=== PATIENT | male | born 1955 | race Caucasian/White ===

== ENCOUNTER 2018-12-11 21:58 | Emergency (ER) | payer BC ==
[~2018-12-11] VITALS: Ht 177.8 cm; Wt 79.8 kg
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
--- NOTE | 2018-12-11 22:45 | NUR ---
PT CAME BACK FROM RADIOLOGY DEPT VIA WHEELCHAIR VAM[facility]I WELL
[2018-12-11] MEDS ORDERED: LIDOCAINE HCL 2% 20 ML VIAL ONE (23:04)
--- NOTE | 2018-12-11 23:30 | NUR ---
PHYSICIAN AT BEDSIDE SUTURES RIGHT EAR PT VAMSHI PROCEDURE WELL
[2018-12-11] MEDS ORDERED: TDAP DIPH,PERTUSS,TET VAC/PF 0.5 ML DISP.SYRIN IM ONE ×2 (23:45→23:49)
[2018-12-11] MEDS ORDERED: ACETAMINOPHEN 325 MG TABLET ONE (23:57)
[2018-12-12] MEDS ORDERED: ACETAMINOPHEN 325 MG TABLET PO ONE
--- NOTE | 2018-12-12 | NUR ---
WAS MEDICATED WITH TETANUS AND TYLENOL DENIES ALLERGIES MEDS TEACHING GIVEN
--- NOTE | 2018-12-12 00:10 | NUR ---
PT WAS DISCHARGE TO HOME WITH HIS [employer]IRLFRIEND CONDITION STABLE DISCHARGE TEACHING GIVEN AND PRESCRIPTION TEACHING GIVEN ENC PT NOT TO DRIVE
[2018-12-12 00:25] VITALS: BP 133/60
== END 2018-12-12 00:10 | disposition home or self-care (01) ==
LOC: ER 22:00
DX: S01.311A Laceration without foreign body of right ear, initial encounter (principal); F10.129 Alcohol abuse with intoxication, unspecified; E78.00 Pure hypercholesterolemia, unspecified; K21.9 Gastro-esophageal reflux disease without esophagitis; E11.9 Type 2 diabetes mellitus without complications; W01.198A Fall on same level from slipping, tripping and stumbling with subsequent striking against other object, initial encounter; Y93.89 Activity, other specified; Y92.89 Other specified places as the place of occurrence of the external cause; Y99.8 Other external cause status; Y90.9 Presence of alcohol in blood, level not specified
CPT/HCPCS: 12014; 70450; 72125; 90471; 90715; 99284; J3490; A4663

== ENCOUNTER 2021-09-28 18:40 | Emergency (ER) | payer BC ==
[~2021-09-28] VITALS: Ht 177.8 cm; Wt 86.2 kg
[2021-09-28] MEDS ORDERED: HYDROCODONE/APAP 10-325 MG TABLET PO ONE (19:00)
[2021-09-28] MEDS ORDERED: NEOMY/BACITRA/POLYMYXIN B OINT UD PACKET TP ONE ×2 (19:00→19:03)
[2021-09-28] MEDS ORDERED: ONDANSETRON ODT 4 MG TAB.RAPDIS SL ONE (19:00)
[2021-09-28] MEDS ORDERED: METFORMIN (19:02)
[2021-09-28] MEDS ORDERED: [UNRECOGNIZED DRUG - OTHER] (19:02)
[2021-09-28] MEDS ORDERED: ATORVASTATIN (19:02)
[2021-09-28] MEDS ORDERED: LAMICTAL (19:02)
[2021-09-28] MEDS ORDERED: VIAGRA (19:02)
[2021-09-28] MEDS ORDERED: HYDROCODONE/APAP 10-325 MG TABLET ONE (19:03)
[2021-09-28] MEDS ORDERED: ONDANSETRON ODT 4 MG TAB.RAPDIS ONE (19:03)
--- NOTE | 2021-09-28 19:07 | NUR ---
PT IS IN ROOM #2A. DR ESCOBEDO EVALUATED THE PT.
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
[2021-09-28] MEDS ORDERED: ONDA4TAB5 PO (20:44)
[2021-09-28] MEDS ORDERED: HYDR-4209 PO (20:44)
[2021-09-29 01:32] VITALS: BP 138/76
== END 2021-09-28 23:19 | disposition home or self-care (01) ==
LOC: ER 18:40
DX: S20.211A Contusion of right front wall of thorax, initial encounter (principal); S20.311A Abrasion of right front wall of thorax, initial encounter; V49.9XXA Car occupant (driver) (passenger) injured in unspecified traffic accident, initial encounter; Y92.410 Unspecified street and highway as the place of occurrence of the external cause; J84.10 Pulmonary fibrosis, unspecified; R94.31 Abnormal electrocardiogram [ECG] [EKG]; I34.1 Nonrheumatic mitral (valve) prolapse; K21.9 Gastro-esophageal reflux disease without esophagitis; Z79.899 Other long term (current) drug therapy
CPT/HCPCS: 71045; 93005; A4663; Q0162

== ENCOUNTER 2021-10-06 15:46 | Emergency (ER) | payer BC ==
[~2021-10-06] VITALS: Ht 177.8 cm; Wt 86.2 kg
[~2021-10-06 15:46] MED LIST: ATORVASTATIN; HYDR-4209 PO; LAMICTAL; METFORMIN; ONDA4TAB5 PO; VIAGRA; [UNRECOGNIZED DRUG - OTHER]
[2021-10-06] MEDS ORDERED: IV NORMAL SALINE 250 ML BAG IV ONE (15:49)
[2021-10-06] MEDS ORDERED: LAMOTRIGINE (16:09)
--- NOTE | 2021-10-06 16:10 | NUR ---
MD@bedside, medical screening exam in progress
--- NOTE | 2021-10-06 17:24 | NUR ---
Patient is resting comfortably on gurney, NAD.
[2021-10-06] MEDS ORDERED: IV NORMAL SALINE 1000 ML BAG IV ONE (18:00)
[2021-10-06] MEDS ORDERED: IOHEXOL 350 100 ML INFUS..BTL ONE (18:08)
--- NOTE | 2021-10-06 18:14 | NUR ---
"OK to have ice chips." per Dr Proctor. Patient is waiting for his BUN/creatinine and CT scan@this time.
[2021-10-06 18:18] LABS: MEAN CORPUSCULAR HEMOGLOBIN 23.3 uug (23.8-33.4); MEAN CORPUSCULAR VOLUME 73.4 fL (73.0-96.2); PLATELET COUNT (AUTO) 356 K/uL (152-348)
[2021-10-06 18:23] LABS: CREATININE 0.8 mg/dL (0.6-1.3); POTASSIUM 4.3 mmol/L (3.5-5.1)
--- NOTE | 2021-10-06 18:54 | NUR ---
Patient is still in CT scan. Nursing SBAR given to TOMAS Hicks.
--- NOTE | 2021-10-06 19:00 | NUR ---
patient back from CT
--- NOTE | 2021-10-06 19:43 | NUR ---
patient went to restroom. able to ambulate without any assistance
--- NOTE | 2021-10-06 20:50 | NUR ---
Patient discharged to home in stable condition. Written and verbal after care instructions given. Patient verbalizes understanding of instructions. Stressed follow up or return to ER for worsening s/s. Patient is A/O x4, able to ambulate without any assistance, no CP, no SOB, no distress noted, IV discontinued, provided copies of lab and CT.
[2021-10-06 20:56] VITALS: BP 136/72
== END 2021-10-06 20:50 | disposition home or self-care (01) ==
LOC: ER 15:48
DX: S10.93XA Contusion of unspecified part of neck, initial encounter (principal); V49.60XA Unspecified car occupant injured in collision with unspecified motor vehicles in traffic accident, initial encounter; Y92.410 Unspecified street and highway as the place of occurrence of the external cause; S20.319D Abrasion of unspecified front wall of thorax, subsequent encounter; V49.60XD Unspecified car occupant injured in collision with unspecified motor vehicles in traffic accident, subsequent encounter; D64.9 Anemia, unspecified; D75.839 Thrombocytosis, unspecified; I65.21 Occlusion and stenosis of right carotid artery; K21.9 Gastro-esophageal reflux disease without esophagitis; I34.1 Nonrheumatic mitral (valve) prolapse; Z79.899 Other long term (current) drug therapy; Z86.61 Personal history of infections of the central nervous system
CPT/HCPCS: 36415; 70498; 80048; 85025; 93880; 96360; 96361; 99285; Q9967; A4663; J7030; J7050

== ENCOUNTER 2023-10-28 22:11 | Emergency (ER) | payer BC ==
[~2023-10-28] VITALS: Ht 177.8 cm; Wt 81.6 kg
[~2023-10-28 22:11] MED LIST changes: +LAMOTRIGINE
[2023-10-28] MEDS ORDERED: LAMO100T2 PO (22:55)
[2023-10-28] MEDS ORDERED: ROSU10TA29 PO (22:55)
[2023-10-28] MEDS ORDERED: DEXL60CA3 PO (22:55)
[2023-10-28] MEDS ORDERED: EMPA1TAB7 PO (22:55)
[2023-10-28] MEDS ORDERED: mounjaro PO (22:55)
[2023-10-29 00:02] LABS: *BILIRUBIN,URIN NEGATIVE (NEGATIVE); *BLOOD, URINE 1+ (NEGATIVE); *CLARITY,URINE CLEAR (CLEAR); *COLOR,URINE YELLOW (YELLOW); *KETONES,URINE NEGATIVE (NEGATIVE); *PROTEIN,URINE NEGATIVE (NEGATIVE); *UROBILINOGEN,URINE 0.2 E.U./dl (NORMAL); LEUKOCYTE ESTERASE ,URINE NEGATIVE (NEGATIVE); NITRITE, URINE NEGATIVE (NEGATIVE)
[2023-10-29 00:21] LABS: UGLUCOSE 2+ (NEGATIVE)
[2023-10-29 00:24] LABS: BASOPHILS # (AUTO) 0.2 K/UL (0.0-0.2); BASOPHILS % (AUTO) 2.6 % (0.0-2.0); DIFFERENTIAL COMMENT 0; EOSINOPHILS # (AUTO) 0.2 K/uL (0.0-0.7); EOSINOPHILS % (AUTO) 2.6 % (0.0-7.0); HEMATOCRIT 41.2 % (36.7-47.1); HEMOGLOBIN 13.9 g/dL (12.5-16.3); LYMPHOCYTES # (AUTO) 0.9 K/uL (0.8-4.8); LYMPHOCYTES % (AUTO) 12.8 % (20.5-51.5); MEAN CORPUSCULAR HEMOGLOBIN 30.6 uug (23.8-33.4); MEAN CORPUSCULAR HGB CONC 34 g/dL (32.5-36.3); MEAN CORPUSCULAR VOLUME 90.4 fL (73.0-96.2); MONOCYTES # (AUTO) 0.3 K/uL (0.1-1.30); MONOCYTES % (AUTO) 4.5 % (0.0-11.0); NEUTROPHILS # (AUTO) 5.4 K/uL (1.8-8.9); NEUTROPHILS % (AUTO) 77.5 % (38.5-71.5); PLATELET COUNT (AUTO) 227 K/uL (152-348); RED BLOOD CELL COUNT(AUTO) 4.56 MIL/uL (4.06-5.63); RED CELL DISTRIBUTION WIDTH 14.5 % (12.1-16.2); WHITE BLOOD COUNT (AUTO) 6.9 K/uL (3.6-10.2)
[2023-10-29 00:37] LABS: CALCIUM 9.6 mg/dL (8.5-10.1); CARBON DIOXIDE 25 mmol/L (21-32); CHLORIDE 101 mmol/L (98-107); CREATININE 1.1 mg/dL (0.6-1.3); GLUCOSE 116 mg/dL (74-106); SODIUM SERUM 138 mmol/L (136-145); UREA NITROGEN, BLOOD 15 mg/dL (7-18)
[2023-10-29 00:44] LABS: BACTERIA,URINE FEW /HPF (NONE SEEN); SQUAMOUS EPITHELIAL CELL,UR FEW /HPF (NONE SEEN); WBC,URINE NONE SEEN /HPF (0-3)
[2023-10-29 00:46] LABS: ALANINE AMINOTRANSFERASE 42 U/L (16-63); ALBUMIN 3.7 g/dL (3.4-5.0); ALKALINE PHOSPHATASE 54 U/L (50-136); ASPARTATE AMINOTRANSFERASE 24 U/L (15-37); BILIRUBIN,TOTAL 0.4 mg/dL (0.2-1.0); TOTAL PROTEIN, SERUM 7.5 g/dL (6.4-8.2)
[2023-10-29 00:51] LABS: LACTIC ACID 3.7 mmol/L (0.4-2.0)
[2023-10-29 01:04] LABS: BILIRUBIN,DIRECT 0.1 mg/dL (0.0-0.2)
[2023-10-29 02:04] VITALS: BP 118/74; O2SAT 94
== END 2023-10-29 01:26 | disposition home or self-care (01) ==
LOC: ER 22:23
DX: S06.0X0A Concussion without loss of consciousness, initial encounter (principal); R55 Syncope and collapse; R74.02 Elevation of levels of lactic acid dehydrogenase [LDH]; Z79.899 Other long term (current) drug therapy; W18.39XA Other fall on same level, initial encounter; Y93.89 Activity, other specified; Y92.89 Other specified places as the place of occurrence of the external cause; Y99.8 Other external cause status
CPT/HCPCS: 36415; 70450; 83605; 84484; 85025; 85730; 93005; A4606; A4663